=== PATIENT | female | born 1940 | race African-American/Black ===

== ENCOUNTER 2017-08-12 16:12 | Emergency (ER) | payer OTHER, BC ==
[~2017-08-12] VITALS: Ht 167.6 cm; Wt 98.2 kg
[~2017-08-12 16:12] MED LIST: ACIDOPHILUS LA1 EACH PO; ADVAIR HFA120 INHALA IH; AMLODIPINE BESY10 MG PO; APRESOLINE10 MG PO; APRESOLINE25 MG PO; ASPIR 8181 M1 PO; ASPIRIN81 M1 PO; ASPIRIN81 M2 PO; ATIVAN1 MG PO; ATROVENT 00.5 MG/2.5 IH; BAYER CHEWABLE81 MG PO; BENICAR HCT 401 EAC1 PO; BENICAR40 MG PO; BENTYL20 MG PO; BISAC-EVAC10 MG PR; BONIVA150 MG PO; Bactrim,Septra DS 80 PO; CARDIZEM CD,CA240 MG PO; CARDIZEM CD240 MG PO; CHERATUSSIN AC473 ML PO; CLINDAMYCIN HC300 MG PO; CUBICIN500 MG/10 IV; DICYCLOMINE HCL20 MG PO; DIFICID200 MG PO; DOXYCYCLINE HY100 M3 PO; DULCOLAX10 MG PR; ELIQUIS5 MG PO; FLEET ENEMA-AD118 ML PR; FLEET MINERAL133 ML PR; FLORANEX CHE1 TABLET PO; FLORASTOR250 MG PO; FUROSEMIDE40 MG PO; HUMALOG100 UNIT/2 SQ; HYDROCHLOROTHIA25 MG PO; IPRATROPIU0.2 MG/1 M IH; JANUVIA100 MG PO; LABETALOL HCL100 MG PO; LABETALOL HCL200 MG PO; LANTUS 10100 UNITS/ SC; LANTUS 3 M100 UNITS1 SC; LASIX20 MG PO; LASIX40 MG PO; LEVAQUIN500 MG PO; LEVAQUIN750 MG PO; LEVEMIR FL100 UNIT/1 SC; LEVEMIR FL100 UNITS/ PO; LEVEMIR FL100 UNITS/ SC; LEVEMIR100 UNIT/2 SC; LISINOPRIL40 MG PO; LORAZEPAM1 MG PO; LOW DOSE ASPIRI81 M1 PO; MAGNESIUM OXID200 MG PO; METRONIDAZOLE500 MG PO; MILK OF MAGN PO; MILK OF MAGNESI10 ML PO; MORGIDOX100 MG PO; MYCOPHENOLIC A360 MG PO; MYCOSTATIN 100,60 ML PO; MYFORTIC360 MG PO; NORMODYNE,TRAN200 MG PO; NOVOLOG 10100 UNITS/ SC; NOVOLOG PE100 UNITS/ SC; NOVOLOG100 UNIT/1 SC; PERCOCET 5/31 TABLET PO; POTASSIUM CHLO20 ME2 PO; PRAVACHOL40 MG PO; PREDNISONE20 MG PO; PREDNISONE50 MG PO; PROAIR HFA8.5 GM IH; PROCRIT10000 UNI1 IV; PROGRAF1 MG PO; PROVENTIL,2.5 MG/3 M IH; RAPAMUNE0.5 MG PO; RAPAMUNE1 MG PO; RAPAMUNE2 MG PO; SIROLIMUS1 MG PO; SPIRIVA RESPIMAT4 GM IH; TRAMADOL HCL50 MG PO; TRUSOPT5 ML LEFT EYE; ULORIC40 MG PO; ULTRAM50 MG PO; VANCOCIN HCL125 MG PO; VITAMIN D250000 UNIT PO; VITAMIN D31000 UNI2 PO; VITAMIN D31000 UNIT PO; ZANTAC300 MG PO; ZETIA10 MG PO; ZITHROMAX Z-PA250 MG PO; ZOFRAN4 MG PO; ZYVOX600 MG PO
[2017-08-12 17:05] LABS: ALBUMIN 4.1 g/dL (3.2-4.8)
[2017-08-12 17:06] LABS: CHLORIDE 100 mEq/L (99-109); POTASSIUM 5.2 mEq/L (3.7-5.4); SODIUM 133 mEq/L (136-147)
[2017-08-12 17:08] LABS: TOTAL PROTEIN 8.4 g/dL (6.4-8.3)
[2017-08-12 17:10] LABS: TOTAL BILIRUBIN 0.5 mg/dL (0.0-1.0)
[2017-08-12 17:11] LABS: ALKALINE PHOSPHATASE 103 IU/L (3-129)
[2017-08-12 17:12] LABS: CREATININE 1.6 mg/dL (0.6-1.3); GFR ESTIMATE (CALCULATED) 40 mL/min/
[2017-08-12 17:13] LABS: AST (GOT) 9 IU/L (2-34); UREA NITROGEN (BUN) 20 mg/dL (9-23)
[2017-08-12 17:15] LABS: ALT (GPT) 15 IU/L (3-49)
[2017-08-12 17:51] LABS: GLUCOSE 453 mg/dL (70-99)
[2017-08-12 18:20] LABS: HEMATOCRIT 45.8 % (36.0-46.0); HEMATOLOGY COMMENT 1 UNABLE TO REPORT MCH AND RBC DUE TO COLD AGGLUTININS; HEMOGLOBIN 14.9 G/DL (11.9-15.5); MCHC 32.5 G/DL (30.0-36.0); MCV 96.5 FL (83-99); PLAT.SUFFICIENCY DECREASED; PLATELET COUNT 120 K/uL (156-360); WHITE BLOOD COUNT 20.2 K/uL (4.1-10.2)
[2017-08-12 18:54] LABS: APPEARANCE CLEAR ((CLEAR)); BILIRUBIN NEGATIVE; BLOOD SMALL; COLOR YELLOW ((YELLOW)); GLUCOSE (STRIP) >=500; KETONES NEGATIVE; LEUKOCYTES NEGATIVE; NITRITE NEGATIVE; PROTEIN (STRIP) 100; SPECIFIC GRAVITY 1.022 (1.000-1.030); UROBILINOGEN 0.2 MG/DL (0.2-1.0)
[2017-08-12 19:01] LABS: BACTERIA NONE SEEN /HPF; EPITHELIAL CELLS RARE /HPF; MUCUS NONE SEEN /LPF; RED BLOOD CELLS 0-5 /HPF (0-5); UCUL ADDED? NO; WHITE BLOOD CELLS 0-5 /HPF (0-5)
[2017-08-12 22:21] VITALS: BP 186/81
== END 2017-08-12 22:43 | disposition home or self-care (01) ==
LOC: EME 16:12
PROVIDERS: Emergency Medicine
DX: E11.65 Type 2 diabetes mellitus with hyperglycemia (principal); R51 Headache; R50.9 Fever, unspecified; R11.0 Nausea; D72.829 Elevated white blood cell count, unspecified; E11.22 Type 2 diabetes mellitus with diabetic chronic kidney disease; I12.9 Hypertensive chronic kidney disease with stage 1 through stage 4 chronic kidney disease, or unspecified chronic kidney disease; N18.9 Chronic kidney disease, unspecified; Z79.4 Long term (current) use of insulin; Z94.0 Kidney transplant status; Z94.4 Liver transplant status; Z85.05 Personal history of malignant neoplasm of liver; Z86.73 Personal history of transient ischemic attack (TIA), and cerebral infarction without residual deficits; Z86.14 Personal history of Methicillin resistant Staphylococcus aureus infection; Z87.891 Personal history of nicotine dependence
CPT/HCPCS: 70450; 71046; 80053; 81003; 82948; 85027; 87502; J7030

== ENCOUNTER 2018-02-26 20:55 | Observation (INO) | payer OTHER, BC ==
[~2018-02-26] VITALS: Ht 167.6 cm; Wt 99.5 kg
[2018-02-26 21:30] LABS: CHLORIDE 108 mEq/L (99-109); POTASSIUM 4.2 mEq/L (3.7-5.4); SODIUM 140 mEq/L (136-147)
[2018-02-26 21:32] LABS: GLUCOSE 153 mg/dL (70-99)
[2018-02-26 21:35] LABS: CREATININE 1.3 mg/dL (0.6-1.3); GFR ESTIMATE (CALCULATED) 51 mL/min/
[2018-02-26 21:36] LABS: UREA NITROGEN (BUN) 15 mg/dL (9-23)
[2018-02-26 21:42] LABS: TROP-I INTERPRETATION NEGATIVE; TROPONIN-I < 0.01 ng/mL (0.0-0.30)
[2018-02-26 23:22] LABS: HEMATOCRIT 41.3 % (36.0-46.0); HEMOGLOBIN 14.6 G/DL (11.9-15.5); MCHC 35.4 G/DL (30.0-36.0); MCV 96.3 FL (83-99); WHITE BLOOD COUNT 6.8 K/uL (4.1-10.2)
[2018-02-26] MEDS ORDERED: TACROLIMUS ANHYD1 MG PO (23:24)
[2018-02-26] MEDS ORDERED: PRAVASTATIN SOD40 MG PO (23:25)
[2018-02-26] MEDS ORDERED: DORZOLAMIDE HCL10 ML BOTH EYES (23:26)
[2018-02-26] MEDS ORDERED: LABETALOL HCL200 MG PO (23:26)
[2018-02-26] MEDS ORDERED: VALSARTAN40 MG PO (23:27)
[2018-02-26] MEDS ORDERED: VENTOLIN HFA18 GM IH (23:27)
[2018-02-26] MEDS ORDERED: AMLODIPINE BESY10 MG PO (23:27)
[2018-02-26] MEDS ORDERED: FUROSEMIDE40 MG PO (23:28)
[2018-02-26] MEDS ORDERED: CLOPIDOGREL75 MG PO (23:29)
[2018-02-26] MEDS ORDERED: LEVEMIR FL100 UNIT/1 SC (23:29)
[2018-02-26] MEDS ORDERED: NOVOLOG PE100 UNITS/ SC (23:29)
[2018-02-26] MEDS ORDERED: HUMALOG100 UNIT/1 SC (23:33)
[2018-02-27 01:00] VITALS: BP 190/79
[2018-02-27 01:12] LABS: PLATELET COUNT 136 K/uL (156-360)
[2018-02-27 04:03] LABS: TROP-I INTERPRETATION NEGATIVE; TROPONIN-I < 0.01 ng/mL (0.0-0.30)
[2018-02-27 04:31] VITALS: BP 169/79
[2018-02-27 08:05] VITALS: BP 169/80
[2018-02-27 08:44] LABS: CHLORIDE 107 mEq/L (99-109); POTASSIUM 4.5 mEq/L (3.7-5.4); SODIUM 139 mEq/L (136-147)
[2018-02-27 08:49] LABS: CREATININE 1.2 mg/dL (0.6-1.3); GFR ESTIMATE (CALCULATED) 56 mL/min/
[2018-02-27 08:50] LABS: UREA NITROGEN (BUN) 14 mg/dL (9-23)
[2018-02-27 08:52] LABS: GLUCOSE 240 mg/dL (70-99)
[2018-02-27 08:53] LABS: TROP-I INTERPRETATION NEGATIVE; TROPONIN-I < 0.01 ng/mL (0.0-0.30)
[2018-02-27 10:32] LABS: HEMOGLOBIN A1c (GLYCOHEMOGLOB) 9.7 % (Below 5.7)
[2018-02-27 12:24] VITALS: BP 158/77
[2018-02-27] MEDS ORDERED: LOSARTAN POTAS100 MG PO (13:49)
[2018-02-27] MEDS ORDERED: ASPIR-LOW81 MG PO (13:51)
== END 2018-02-27 15:52 | disposition home or self-care (01) ==
LOC: EME 20:55 → EDOF 02-27 00:09 → 4SOUTH 02-27 00:47 → ENPENDDIS 02-27 14:23 → 4SOUTH 02-27 15:52
PROVIDERS: Hospitalist; Internal Medicine; Physician Assistant
DX: R07.9 Chest pain, unspecified (principal); I11.0 Hypertensive heart disease with heart failure; I50.32 Chronic diastolic (congestive) heart failure; I48.0 Paroxysmal atrial fibrillation; Z94.0 Kidney transplant status; Z94.4 Liver transplant status; E11.65 Type 2 diabetes mellitus with hyperglycemia; Z85.05 Personal history of malignant neoplasm of liver; Z79.82 Long term (current) use of aspirin; J44.9 Chronic obstructive pulmonary disease, unspecified; Z79.4 Long term (current) use of insulin; R60.0 Localized edema; Z85.828 Personal history of other malignant neoplasm of skin; Z87.891 Personal history of nicotine dependence; Z80.8 Family history of malignant neoplasm of other organs or systems; Z79.02 Long term (current) use of antithrombotics/antiplatelets
CPT/HCPCS: 71046; 80048; 82948; 83036; 83880; 84484; 85027; 87641; 93005; 99281; 99285; G0378; J1644; J1815; J1940; J7507